=== PATIENT | male | born 1975 | race Caucasian/White ===

== ENCOUNTER 2021-01-22 12:32 | Emergency (ER) | payer SELFPAY ==
[~2021-01-22] VITALS: Ht 190.5 cm; Wt 101.4 kg
[2021-01-22 12:52] VITALS: BP 151/96
[2021-01-22] MEDS ORDERED: DIPH,PERTUSS(ACELL),TET VAC/PF 0.5 ML IM-VACC ONE ×2 (13:00→16:51)
[2021-01-22] MEDS ORDERED: LIDOCAINE-MPF 1%, 5ML INFIL ONE (13:00)
[2021-01-22] MEDS ORDERED: ACETAMINOPHEN 325 MG TABLET ONE (15:59)
[2021-01-22] MEDS ORDERED: ACETAMINOPHEN 325 MG TABLET PO ONE (16:00)
--- NOTE | 2021-01-22 16:16 | NUR ---
ADRYAN IS AT THE BEDSIDE FOR XYLOCAINE/SUTURES
[2021-01-22] MEDS ORDERED: BACITRACIN ZINC OINT 500U/GM, 0.9 GM ONE (16:50)
[2021-01-22] MEDS ORDERED: IBUPROFEN 600 MG TABLET ONE (16:55)
[2021-01-22] MEDS ORDERED: IBUPROFEN 600 MG TABLET PO ONE (17:00)
== END 2021-01-22 17:50 | disposition home or self-care (01) ==
LOC: ED 12:37
DX: S01.81XA Laceration without foreign body of other part of head, initial encounter (principal); W01.0XXA Fall on same level from slipping, tripping and stumbling without subsequent striking against object, initial encounter; Y93.89 Activity, other specified; Y92.009 Unspecified place in unspecified non-institutional (private) residence as the place of occurrence of the external cause; Y99.8 Other external cause status
CPT/HCPCS: 12013; 70450; 70486; 90471; 90715